=== PATIENT | male | born 1985 | race Hispanic/Latino ===

== ENCOUNTER 2021-05-12 20:00 | Inpatient (IN) | payer SELFPAY ==
[~2021-05-12] VITALS: Ht 160 cm; Wt 69.0 kg
[2021-05-12] MEDS ORDERED: PIP/TAZ ZOSYN 3.375G 3.375 GM VIAL IVPB ONE (20:45)
[2021-05-12] MEDS ORDERED: 0.9%NACL 1000ML 1,000 ML IV ONE (20:45)
[2021-05-12] MEDS ORDERED: TETANUS/DIPHTHERIA TOXOID [ADULT] 0.5 ML VIAL IM ONE (20:45)
[2021-05-12] MEDS ORDERED: INSULIN HUMULIN R 100 UNIT/ML 3ML IV ONE (20:45)
[2021-05-12] MEDS ORDERED: 0.9%NACL 50ML IV ONE (20:45)
[2021-05-12] MEDS ORDERED: MORPHINE 5 MG/ML VIAL (5MG OR GREATER DOSE) IV ONE (20:45)
[2021-05-12] MEDS ORDERED: ONDANSETRON 4MG INJ IVP ONE (20:45)
[2021-05-12 20:50] LABS: BASOPHILS % (AUTO) 0.5 % (0.0-5.0); HEMATOCRIT 46.3 % (42-54); MEAN CORPUSCULAR HEMOGLOBIN 29.4 pg (27.0-33.0); MEAN CORPUSCULAR HGB CONC 34.8 g/dL (32.0-36.0); MEAN CORPUSCULAR VOLUME 84.5 fL (79-99); MONOCYTES % (AUTO) 5.6 % (3.0-13.0); NEUTROPHILS % (AUTO) 65.4 % (40.0-77.0); PLATELET COUNT (AUTO) 397 K/uL (130-400); RED BLOOD CELL COUNT(AUTO) 5.48 MIL/uL (4.50-6.20); WHITE BLOOD COUNT (AUTO) 10.5 K/uL (4.8-10.8)
[2021-05-12 20:59] LABS: APPEARANCE,URINE Clear (CLEAR); BILIRUBIN,URINE Negative (NEGATIVE); COLOR,URINE Yellow (YELLOW); GLUCOSE, URINE (UA) >=1000 mg/dL (NEGATIVE); KETONES,URINE Negative (NEGATIVE); LEUKOCYTE ESTERASE ,URINE Negative (NEGATIVE); NITRATE,URINE Negative (NEGATIVE); OCCULT BLOOD,URINE Negative (NEGATIVE); PH,URINE 6.5 (5.0-8.0); PROTEIN,URINE Negative (NEGATIVE); UROBILINOGEN,URINE 0.2 mg/dL (0.2-1.0)
[2021-05-12 21:04] LABS: ALBUMIN 3.5 g/dL (3.5-5.0); BILIRUBIN,TOTAL 0.4 mg/dL (0.2-1.0); CREATININE 0.8 mg/dL (0.5-1.5); POTASSIUM 4.1 mmol/L (3.5-5.1)
[2021-05-12 21:13] LABS: BACTERIA,URINE Rare /HPF (None Seen); RBC,URINE 0-1 /HPF (0-1); SQUAMOUS EPITHELIAL CELL,UR None Seen /HPF (0-2); WBC,URINE 0-1 /HPF (0-1)
[2021-05-12 21:14] LABS: CRP QUANTITATIVE 227.1 mg/L (0.00-9.0)
[2021-05-12] MEDS ORDERED: ZOSYN 3.375GM+NS 50ML 50 ML IV ONE (21:19)
[2021-05-12] MEDS ORDERED: KETOROLAC 30MG VIAL (30MG/ML) IV ONE (22:45)
[2021-05-12 23:35] VITALS: BP_SYST 131; BP_SYST 149; BP_DIAS 75; BP_DIAS 87
[2021-05-13] MEDS ORDERED: MORPHINE 2 MG SYG ONE ×2 (03:22→07:30)
[2021-05-13] MEDS ORDERED: ZOSYN 3.375GM+NS 50ML 50 ML IV ONE (05:47)
[2021-05-13] MEDS ORDERED: 0.9%NACL 50ML 50 ML IV ONE (05:49)
[2021-05-13] MEDS ORDERED: INSULIN HUMULIN R 100 UNIT/ML 3ML ONE (06:25)
[2021-05-13 06:44] VITALS: BP 137/81
[2021-05-13] MEDS ORDERED: KETOROLAC 15MG/ML VIAL (15MG/ML) ONE (07:30)
[2021-05-13] MEDS ORDERED: ACETAMINOPHEN 325 MG TAB PO PRN (08:00)
[2021-05-13] MEDS ORDERED: ONDANSETRON 4MG INJ IV PRN (08:00)
[2021-05-13] MEDS ORDERED: LACTULOSE 20 GM/30 ML UDCUP PO PRN (08:00)
[2021-05-13 08:39] LABS: BASOPHILS % (AUTO) 0.7 % (0.0-5.0); EOSINOPHILS % (AUTO) 1.7 % (0.0-8.0); HEMATOCRIT 45.1 % (42-54); LYMPHOCYTES % (AUTO) 24.2 % (21.0-51.0); MEAN CORPUSCULAR HEMOGLOBIN 29.8 pg (27.0-33.0); MEAN CORPUSCULAR HGB CONC 34.4 g/dL (32.0-36.0); MEAN CORPUSCULAR VOLUME 86.7 fL (79-99); MONOCYTES % (AUTO) 7.1 % (3.0-13.0); PLATELET COUNT (AUTO) 379 K/uL (130-400); RED CELL DISTRIBUTION WIDTH 13.2 % (11.0-15.5); WHITE BLOOD COUNT (AUTO) 8.6 K/uL (4.8-10.8)
[2021-05-13 08:53] LABS: CREATININE 0.9 mg/dL (0.5-1.5); POTASSIUM 4.1 mmol/L (3.5-5.1)
[2021-05-13 08:58] LABS: BILIRUBIN,TOTAL 0.4 mg/dL (0.2-1.0); TOTAL PROTEIN, SERUM 7.2 g/dL (6.0-8.3)
[2021-05-13] MEDS: ENOXAPARIN SODIUM 30 MG/0.3 ML SQ SCH (09:00)
[2021-05-13] MEDS: FAMOTIDINE 20MG TAB PO SCH ×2 (09:24→20:33)
[2021-05-13] MEDS: ACETAMINOPHEN 325 MG TAB PO PRN ×2 (09:25→18:33)
[2021-05-13 10:30] VITALS: BP 135/74
[2021-05-13] MEDS: ZOSYN 3.375GM+NS 50ML 50 ML IV SCH ×2 (12:46→20:33)
[2021-05-13] MEDS: INSULIN HUMULIN R 100 UNIT/ML 3ML SQ SCH ×3 (12:46→20:46)
[2021-05-13] MEDS: MORPHINE 2 MG SYG IV PRN ×2 (12:47→16:40)
[2021-05-13] MEDS: KETOROLAC 15MG/ML VIAL (15MG/ML) IV PRN ×2 (14:32→20:33)
[2021-05-13 16:38] VITALS: BP 135/84
[2021-05-14] VITALS (7 sets, daily range): BP systolic 97–148; BP diastolic 55–84
[2021-05-14] MEDS: KETOROLAC 15MG/ML VIAL (15MG/ML) IV PRN ×3 (02:48→15:25)
[2021-05-14] MEDS: ZOSYN 3.375GM+NS 50ML 50 ML IV SCH ×3 (05:10→20:06)
[2021-05-14 05:51] LABS: BASOPHILS % (AUTO) 0.7 % (0.0-5.0); EOSINOPHILS % (AUTO) 1.3 % (0.0-8.0); HEMATOCRIT 45.3 % (42-54); LYMPHOCYTES % (AUTO) 26.7 % (21.0-51.0); MEAN CORPUSCULAR HEMOGLOBIN 29.3 pg (27.0-33.0); MEAN CORPUSCULAR HGB CONC 34.7 g/dL (32.0-36.0); MEAN CORPUSCULAR VOLUME 84.7 fL (79-99); MONOCYTES % (AUTO) 6.9 % (3.0-13.0); NEUTROPHILS % (AUTO) 63.9 % (40.0-77.0); PLATELET COUNT (AUTO) 384 K/uL (130-400); RED BLOOD CELL COUNT(AUTO) 5.35 MIL/uL (4.50-6.20); RED CELL DISTRIBUTION WIDTH 12.9 % (11.0-15.5); WHITE BLOOD COUNT (AUTO) 7.4 K/uL (4.8-10.8)
[2021-05-14 06:04] LABS: CREATININE 0.9 mg/dL (0.5-1.5); POTASSIUM 3.9 mmol/L (3.5-5.1)
[2021-05-14] MEDS: INSULIN HUMULIN R 100 UNIT/ML 3ML SQ SCH ×4 (07:30→20:15)
[2021-05-14] MEDS: ENOXAPARIN SODIUM 30 MG/0.3 ML SQ SCH (10:20)
[2021-05-14] MEDS: FAMOTIDINE 20MG TAB PO SCH ×2 (10:20→20:06)
[2021-05-14] MEDS ORDERED: 0.9%NACL 100ML 100 ML ONE (14:31)
[2021-05-14] MEDS ORDERED: VANCOMYCIN 1G 2 GM in 0.9% NACL 500ML IV.SOLN 500 ML IV ONE (15:30)
[2021-05-14] MEDS ORDERED: GLYB5TAB8 PO (18:17)
[2021-05-14] MEDS ORDERED: METF-526 PO (18:17)
[2021-05-14] MEDS: MORPHINE 2 MG SYG IV PRN ×2 (18:32→23:26)
[2021-05-14] MEDS: ACETAMINOPHEN 325 MG TAB PO PRN (20:14)
[2021-05-14] MEDS ORDERED: 0.9% NACL 250ML IVPB SCH (23:00)
[2021-05-15] MEDS: 0.9% NACL 250ML IVPB SCH ×2 (01:57→09:37)
[2021-05-15] MEDS: VANCOMYCIN 1G VIAL IVPB SCH ×2 (01:57→09:36)
[2021-05-15] MEDS: KETOROLAC 15MG/ML VIAL (15MG/ML) IV PRN ×3 (02:55→22:44)
[2021-05-15] MEDS: ZOSYN 3.375GM+NS 50ML 50 ML IV SCH ×3 (03:52→21:44)
[2021-05-15] MEDS: MORPHINE 2 MG SYG IV PRN ×3 (03:53→21:54)
[2021-05-15 03:59] VITALS: BP 136/68
[2021-05-15] MEDS: INSULIN HUMULIN R 100 UNIT/ML 3ML SQ SCH ×5 (06:45→21:55)
[2021-05-15 06:57] LABS: BASOPHILS % (AUTO) 1.1 % (0.0-5.0); EOSINOPHILS % (AUTO) 3.5 % (0.0-8.0); HEMATOCRIT 43.4 % (42-54); LYMPHOCYTES % (AUTO) 39.2 % (21.0-51.0); MEAN CORPUSCULAR HEMOGLOBIN 29.6 pg (27.0-33.0); MEAN CORPUSCULAR HGB CONC 34.3 g/dL (32.0-36.0); MEAN CORPUSCULAR VOLUME 86.1 fL (79-99); MONOCYTES % (AUTO) 8.4 % (3.0-13.0); NEUTROPHILS % (AUTO) 47.2 % (40.0-77.0); PLATELET COUNT (AUTO) 403 K/uL (130-400); RED BLOOD CELL COUNT(AUTO) 5.04 MIL/uL (4.50-6.20); RED CELL DISTRIBUTION WIDTH 13.1 % (11.0-15.5); WHITE BLOOD COUNT (AUTO) 6.6 K/uL (4.8-10.8)
[2021-05-15 07:06] LABS: CREATININE 0.9 mg/dL (0.5-1.5); POTASSIUM 4.2 mmol/L (3.5-5.1)
[2021-05-15] MEDS ORDERED: VANCOMYCIN KIT 250 ML IV ONE (08:51)
[2021-05-15 08:57] VITALS: BP 127/82
[2021-05-15] MEDS: FAMOTIDINE 20MG TAB PO SCH ×2 (09:32→21:44)
[2021-05-15] MEDS: ENOXAPARIN SODIUM 30 MG/0.3 ML SQ SCH (09:34)
[2021-05-15 11:00] VITALS: BP 127/84
[2021-05-15 14:51] LABS: HEMOGLOBIN A1C 11.1 % (4.0-6.0)
[2021-05-15 16:55] VITALS: BP 151/80
[2021-05-15] MEDS: VANCOMYCIN 750MG VIAL IVPB SCH (17:30)
[2021-05-15] MEDS ORDERED: GADOTERATE MEGLUMINE 5 MMOL/10 ML VIAL IV ONE (18:25)
[2021-05-15 19:42] VITALS: BP 138/77
[2021-05-15 23:31] VITALS: BP 149/88
[2021-05-16] MEDS: 0.9% NACL 250ML 250 ML IV SCH ×2 (01:55→17:01)
[2021-05-16] MEDS: VANCOMYCIN 750MG VIAL IVPB SCH ×3 (01:55→17:01)
[2021-05-16 03:47] VITALS: BP 119/75
[2021-05-16] MEDS: ZOSYN 3.375GM+NS 50ML 50 ML IV SCH ×3 (05:46→19:47)
[2021-05-16] MEDS: MORPHINE 2 MG SYG IV PRN ×4 (05:54→19:52)
[2021-05-16 06:10] LABS: BASOPHILS % (AUTO) 1.1 % (0.0-5.0); EOSINOPHILS % (AUTO) 3.6 % (0.0-8.0); HEMATOCRIT 44.4 % (42-54); LYMPHOCYTES % (AUTO) 44.3 % (21.0-51.0); MEAN CORPUSCULAR HEMOGLOBIN 29.8 pg (27.0-33.0); MEAN CORPUSCULAR HGB CONC 34.9 g/dL (32.0-36.0); MEAN CORPUSCULAR VOLUME 85.4 fL (79-99); MONOCYTES % (AUTO) 8.1 % (3.0-13.0); NEUTROPHILS % (AUTO) 41.6 % (40.0-77.0); PLATELET COUNT (AUTO) 411 K/uL (130-400); RED CELL DISTRIBUTION WIDTH 12.9 % (11.0-15.5); WHITE BLOOD COUNT (AUTO) 6.2 K/uL (4.8-10.8)
[2021-05-16 06:20] LABS: CREATININE 0.8 mg/dL (0.5-1.5); CRP QUANTITATIVE 35.2 mg/L (0.00-9.0); POTASSIUM 4.1 mmol/L (3.5-5.1)
[2021-05-16] MEDS: INSULIN HUMULIN R 100 UNIT/ML 3ML SQ SCH ×4 (06:24→21:14)
[2021-05-16 08:00] VITALS: BP 142/88
[2021-05-16] MEDS: ENOXAPARIN SODIUM 30 MG/0.3 ML SQ SCH (08:51)
[2021-05-16] MEDS: FAMOTIDINE 20MG TAB PO SCH ×2 (08:51→19:47)
[2021-05-16] MEDS: KETOROLAC 15MG/ML VIAL (15MG/ML) IV PRN ×3 (11:39→23:43)
[2021-05-16 11:50] VITALS: BP 167/93
[2021-05-16 16:00] VITALS: BP 160/82
[2021-05-16] MEDS ORDERED: VANCOMYCIN PROTOCOL PER PHARMACY IV SCH (17:30)
[2021-05-16] MEDS ORDERED: AMLODIPINE 5 MG TAB ONE (17:54)
[2021-05-16] MEDS ORDERED: AMLODIPINE 5 MG TAB PO ONE (18:00)
[2021-05-16 20:00] VITALS: BP 154/87
[2021-05-16] MEDS ORDERED: INSULIN GLARGINE 100 UNITS/ML 10 ML VIAL SQ SCH (21:00)
[2021-05-17] VITALS: BP 160/85
[2021-05-17] MEDS: VANCOMYCIN KIT 1 GM/250 ML IV.KIT IV SCH ×2 (01:18→10:10)
[2021-05-17] MEDS: 0.9% NACL 250ML 250 ML IV SCH ×2 (01:18→10:10)
[2021-05-17] MEDS: MORPHINE 2 MG SYG IV PRN ×4 (01:26→21:04)
[2021-05-17] MEDS: ZOSYN 3.375GM+NS 50ML 50 ML IV SCH ×3 (03:06→19:39)
[2021-05-17 04:00] VITALS: BP 113/65
[2021-05-17 04:01] LABS: AMPHET/METH SCREEN,URINE NEGATIVE (NEGATIVE); BARBITURATE SCREEN, URINE NEGATIVE (NEGATIVE); BENZODIAZEPINES SCREEN,URINE NEGATIVE (NEGATIVE); CANNABINOID SCREEN,URINE NEGATIVE (NEGATIVE); COCAINE SCREEN,URINE NEGATIVE (NEGATIVE); OPIATE SCREEN,URINE NEGATIVE (NEGATIVE); PHENCYCLIDINE SCREEN,URINE NEGATIVE (NEGATIVE)
[2021-05-17] MEDS: KETOROLAC 15MG/ML VIAL (15MG/ML) IV PRN ×3 (05:57→19:40)
[2021-05-17 06:06] LABS: BASOPHILS % (AUTO) 0.9 % (0.0-5.0); EOSINOPHILS % (AUTO) 4.6 % (0.0-8.0); HEMATOCRIT 43.9 % (42-54); LYMPHOCYTES % (AUTO) 47.1 % (21.0-51.0); MEAN CORPUSCULAR HEMOGLOBIN 29.9 pg (27.0-33.0); MEAN CORPUSCULAR HGB CONC 35.1 g/dL (32.0-36.0); MEAN CORPUSCULAR VOLUME 85.2 fL (79-99); MONOCYTES % (AUTO) 6.9 % (3.0-13.0); PLATELET COUNT (AUTO) 426 K/uL (130-400); RED BLOOD CELL COUNT(AUTO) 5.15 MIL/uL (4.50-6.20); RED CELL DISTRIBUTION WIDTH 12.7 % (11.0-15.5); WHITE BLOOD COUNT (AUTO) 5.8 K/uL (4.8-10.8)
[2021-05-17 06:16] LABS: CREATININE 0.9 mg/dL (0.5-1.5); POTASSIUM 4.1 mmol/L (3.5-5.1)
[2021-05-17] MEDS: INSULIN HUMULIN R 100 UNIT/ML 3ML SQ SCH ×4 (06:29→21:25)
[2021-05-17 08:11] VITALS: BP 142/85
[2021-05-17] MEDS: FAMOTIDINE 20MG TAB PO SCH ×2 (08:20→19:39)
[2021-05-17] MEDS: AMLODIPINE 5 MG TAB PO SCH (08:20)
[2021-05-17] MEDS: ENOXAPARIN SODIUM 30 MG/0.3 ML SQ SCH (08:25)
[2021-05-17 12:00] VITALS: BP 123/84
[2021-05-17 16:00] VITALS: BP 133/85
[2021-05-17 19:00] VITALS: BP 149/85
[2021-05-17] MEDS ORDERED: INSULIN GLARGINE 100 UNITS/ML 10 ML VIAL SQ SCH (21:00)
[2021-05-18] VITALS: BP 144/81
[2021-05-18] MEDS: KETOROLAC 15MG/ML VIAL (15MG/ML) IV PRN (01:57)
[2021-05-18] MEDS: ZOSYN 3.375GM+NS 50ML 50 ML IV SCH ×3 (03:39→20:13)
[2021-05-18] MEDS: MORPHINE 2 MG SYG IV PRN (03:40)
[2021-05-18 04:00] VITALS: BP 128/76
[2021-05-18] MEDS: INSULIN HUMULIN R 100 UNIT/ML 3ML SQ SCH ×4 (06:38→21:12)
[2021-05-18 06:41] LABS: BASOPHILS % (AUTO) 1.5 % (0.0-5.0); EOSINOPHILS % (AUTO) 4.8 % (0.0-8.0); HEMATOCRIT 44.4 % (42-54); LYMPHOCYTES % (AUTO) 54.3 % (21.0-51.0); MEAN CORPUSCULAR HEMOGLOBIN 29.3 pg (27.0-33.0); MEAN CORPUSCULAR HGB CONC 34.7 g/dL (32.0-36.0); MEAN CORPUSCULAR VOLUME 84.4 fL (79-99); MONOCYTES % (AUTO) 7.3 % (3.0-13.0); NEUTROPHILS % (AUTO) 30.6 % (40.0-77.0); PLATELET COUNT (AUTO) 464 K/uL (130-400); RED BLOOD CELL COUNT(AUTO) 5.26 MIL/uL (4.50-6.20); RED CELL DISTRIBUTION WIDTH 12.8 % (11.0-15.5); WHITE BLOOD COUNT (AUTO) 5.2 K/uL (4.8-10.8)
[2021-05-18 06:47] LABS: CREATININE 0.8 mg/dL (0.5-1.5); POTASSIUM 3.9 mmol/L (3.5-5.1)
[2021-05-18 08:00] VITALS: BP 128/81
[2021-05-18] MEDS: AMLODIPINE 5 MG TAB PO SCH (08:49)
[2021-05-18] MEDS: FAMOTIDINE 20MG TAB PO SCH ×2 (08:49→20:16)
[2021-05-18] MEDS: ENOXAPARIN SODIUM 30 MG/0.3 ML SQ SCH (08:51)
[2021-05-18] MEDS ORDERED: VANCOMYCIN 1G 2 GM in 0.9% NACL 500ML IV.SOLN 500 ML IV SCH (11:30)
[2021-05-18 12:00] VITALS: BP 143/84
[2021-05-18 16:00] VITALS: BP 134/90
[2021-05-18 20:00] VITALS: BP 144/83
[2021-05-18] MEDS: ACETAMINOPHEN 325 MG TAB PO PRN (20:20)
[2021-05-18] MEDS ORDERED: INSULIN GLARGINE 100 UNITS/ML 10 ML VIAL SQ SCH (21:00)
[2021-05-18] MEDS: VANCOMYCIN KIT 1 GM/250 ML IV.KIT IV SCH (22:55)
[2021-05-18] MEDS: 0.9% NACL 250ML 250 ML IV SCH (22:56)
[2021-05-19] VITALS: BP 110/74
[2021-05-19 04:00] VITALS: BP 130/74
[2021-05-19] MEDS: ZOSYN 3.375GM+NS 50ML 50 ML IV SCH ×2 (04:20→13:26)
[2021-05-19] MEDS: ACETAMINOPHEN 325 MG TAB PO PRN ×2 (04:23→11:44)
[2021-05-19] MEDS: VANCOMYCIN KIT 1 GM/250 ML IV.KIT IV SCH ×2 (06:03→13:34)
[2021-05-19] MEDS: 0.9% NACL 250ML 250 ML IV SCH ×2 (06:05→13:34)
[2021-05-19] MEDS: INSULIN HUMULIN R 100 UNIT/ML 3ML SQ SCH ×2 (06:34→11:32)
[2021-05-19 07:04] LABS: BASOPHILS % (AUTO) 1.1 % (0.0-5.0); EOSINOPHILS % (AUTO) 4.4 % (0.0-8.0); HEMATOCRIT 46.2 % (42-54); LYMPHOCYTES % (AUTO) 49.7 % (21.0-51.0); MEAN CORPUSCULAR HEMOGLOBIN 28.9 pg (27.0-33.0); MEAN CORPUSCULAR VOLUME 84.9 fL (79-99); MONOCYTES % (AUTO) 8.6 % (3.0-13.0); NEUTROPHILS % (AUTO) 34.7 % (40.0-77.0); PLATELET COUNT (AUTO) 484 K/uL (130-400); RED BLOOD CELL COUNT(AUTO) 5.44 MIL/uL (4.50-6.20); RED CELL DISTRIBUTION WIDTH 12.8 % (11.0-15.5); WHITE BLOOD COUNT (AUTO) 5.5 K/uL (4.8-10.8)
[2021-05-19 07:11] LABS: POTASSIUM 4.1 mmol/L (3.5-5.1)
[2021-05-19 08:03] VITALS: BP 137/88
[2021-05-19] MEDS: AMLODIPINE 5 MG TAB PO SCH (08:46)
[2021-05-19] MEDS: FAMOTIDINE 20MG TAB PO SCH (08:46)
[2021-05-19] MEDS: ENOXAPARIN SODIUM 30 MG/0.3 ML SQ SCH (08:47)
[2021-05-19 11:11] VITALS: BP 139/78
[2021-05-19] MEDS ORDERED: CEFU500T67 PO (14:24)
== END 2021-05-19 16:00 | disposition home or self-care (01) | DRG 603 ==
LOC: EDH 20:00 → EDHIP 20:01 → 3BH 05-14 15:28
PROVIDERS: ADMIT Family Medicine; ATTEND Family Medicine
DX: L03.113 Cellulitis of right upper limb (principal); E87.1 Hypo-osmolality and hyponatremia; L02.511 Cutaneous abscess of right hand; E11.65 Type 2 diabetes mellitus with hyperglycemia; Z79.84 Long term (current) use of oral hypoglycemic drugs
CPT/HCPCS: 36415; 73130; 73200; 73220; 80048; 80053; 80202; 80305; 81001; 82550; 82947; 82948; 83036; 83605; 85025; 86140; 87040; 87070; 87076; 87077; 87186; 90714; G0378; J1650; J1815; J1885; J2270; J2405; J2543; J3370; J7040; J7050